=== PATIENT | female | born 1990 | race Caucasian/White ===

== ENCOUNTER 2017-03-14 15:24 | Emergency (ER) | payer OTHER ==
[~2017-03-14] VITALS: Ht 167.6 cm; Wt 82.1 kg
[2017-03-14 15:25] VITALS: TEMP 36.5; Ht 167.6 cm; Wt 82.1 kg
[2017-03-14] MEDS ORDERED: LEVOIUD INT UTER (16:09)
[2017-03-14] MEDS ORDERED: CETI10TA10 PO (16:09)
[2017-03-14] MEDS ORDERED: CALC500C3 PO (16:09)
[2017-03-14] MEDS ORDERED: GELATIN SPONGE 12-7MM EXT ONE (16:15)
[2017-03-14] MEDS ORDERED: ACETAMINOPHEN 500 MG TAB PO STA (16:36)
[2017-03-14] MEDS ORDERED: XYLOCAINE 1%/SOD BICARB 20 ML VIAL INFIL ONE (17:00)
[2017-03-14] MEDS ORDERED: BUPIVACAINE 0.5 % 5 MG/1 ML MPF 30ML VIAL INFIL ONE (17:00)
[2017-03-14 18:30] VITALS: BP 133/79; PULSE 74; O2SAT 100
[2017-03-14] MEDS ORDERED: CEPH500C PO (18:36)
--- NOTE | 2017-03-14 18:40 | EMERGENCY ROOM VISIT NOTE ---
ED Visit Note First contact with patient: 15:32 CHIEF COMPLAINT: Finger avulsion HISTORY OF PRESENT ILLNESS: This 26-year-old female patient presents to the emergency department approximately 30 minutes after cutting the lateral right thumb on a mandolin slicer. The patient said "it cut a chunk of skin off that I brought in a separate paper towel". The patient immediately applied pressure to the area and bandaged it with paper towels and tape, however the bleeding has not stopped. The patient states her thumb feels cold and tingling, but she believes the bones are intact, and states she is able to move the thumb. The patient states she was told she may have anti-thrombin 3 deficiency, however states she is still having testing completed. The bleeding has not stopped. Denies weakness or numbness of the finger. The patient has full range of motion of the fingers. The patient rates the pain as throbbing and 6/10. The patient denies any other injuries. The patient's tetanus shot is up to date. REVIEW OF SYSTEMS: A 6 system review of systems was completed with positives and pertinent negatives listed in the HPI. ALLERGIES: None MEDICATIONS: Mirena PMH: None SOCIAL HISTORY: The patient lives locally with family. She denies drug, alcohol , tobacco use. PHYSICAL EXAM: Vital Signs: Reviewed Nurse's notes, vital signs stable. GENERAL : This is a 26-year-old female, in no acute distress, well developed, well nourished. SKIN: There is a 1.5 cm long avulsion of the skin of the lateral thumb on the right. The edges gape apart. There is no foreign material in the wound and it looks clean. There is a significant amount of active bleeding. No deep structures such as tendons, bones, or significant blood vessels are seen in the base of the wound. Extension and flexion of the finger is full and strong. Full range of motion of the wrist and other fingers. Capillary refill less than 2 seconds. Normal sensation to light and sharp touch. EMERGENCY DEPARTMENT COURSE: I examined the patient. A pressure bandage was applied and allowed to sit for approximately 20 minutes. The bleeding continued , so a finger tourniquet was applied with a Gelfoam dressing. This allowed to sit for 30 minutes. Upon removal of the tourniquet, bleeding resumed. Verbal consent was obtained to perform the procedure. Using sterile technique the wound was cleansed with Betadine. 10 ml of 1% buffered lidocaine and 0.5% bupivacaine was used to perform a digital block to anesthetize the patient. The area was sterilely draped. Once the patient was anesthetized, the wound was copiously irrigated under pressure with sterile saline. The wound was explored and there were no deep structures injured, however, there are several small blood vessels actively bleeding. The vessels were ligated using approximately 10 simple interrupted 6-0 fast-absorbing sutures. The patient tolerated the procedure well. Hemostasis was achieved. The area was cleaned with sterile saline and dressed with Gelfoam and bandage. The patient was discharged home in good condition. DIFFERENTIAL DIAGNOSIS: avulsion, laceration, fracture, contusion, open fracture , and others. DIAGNOSIS: Finger avulsion DISCHARGE INSTRUCTIONS & TREATMENT: We did place dissolvable sutures and your hand. No further action is needed. Proper wound care is essential for adequate wound healing and infection prevention. You can shower and clean the wound with soap and water. Do not scour over the wound, pat dry with a towel. Do not submerse the wound (i.e. bathe or dish wash) until the wound has fully healed. You can use an antibiotic ointment with a dressing over the wound for the next 3-4 days after gelfoam dressing is removed. After this time you may leave the wound dry and open to the air. You were prescribed Keflex to be taken 4 times daily. This is an antibiotic. All antibiotics have the potential to cause diarrhea. Stop this medication and contact a medical provider if you were to develop any significant adverse side effects including: wheezing, shortness of breath, passing out, vomiting, or a diffuse rash. Always take antibiotics as directed and COMPLETE the ENTIRE course regardless of the improvement of your symptoms. Please read Gelfoam handout. Please follow up this week with your PCP for recheck of the wound. Please return to the emergency department for uncontrollable bleeding, worsening pain, redness, pus, fever, chills, body aches, or other concerning drainage. Current/Historical Medications Scheduled Cephalexin Monohydrate (Keflex), 500 MG PO QID Cetirizine Hcl (Zyrtec), 10 MG PO DAILY Levonorgestrel (Iud) (Mirena), 20 MCG INT UTER UD Scheduled PRN Calcium Carbonate (Tums), 500 MG PO UD PRN for Indigestion Oxycodone Ir (Roxicodone Ir), 1 TAB PO Q4-6H PRN for Pain Allergies Coded Allergies: No Known Allergies (Unverified , 03/14/17) Vital Signs Date Time Temp Pulse Resp B/P (MAP) Pulse Ox O2 Delivery O2 Flow Rate FiO2 03/14/17 18:30 74 17 133/79 100 Room Air 03/14/17 16:45 81 16 132/81 99 Room Air 03/14/17 15:25 36.5 95 16 145/91 100 Room Air Medications Administered Medications (Trade) Dose Ordered Sig/Sarah Route Start Time Stop Time Status Last Admin Dose Admin Acetaminophen (Tylenol Tab) 1,000 mg NOW STAT PO 03/14/17 16:36 03/14/17 16:37 DC 03/14/17 16:43 1,000 MG Departure Information Impression Primary Impression: Avulsion of skin of right thumb without complication Dispostion Home / Self-Care Condition GOOD Prescriptions Oxycodone Ir (Roxicodone Ir) 5 Mg Tab 1 TAB PO Q4-6H Y for Pain, #15 TAB For Initial Treatment Prov: Mindy Cr PA-C 03/14/17 Cephalexin Monohydrate (Keflex) 500 Mg Cap 500 MG PO QID for 7 Days, #28 CAP Prov: Mindy Cr PA-C 03/14/17 Referrals No Doctor, Assigned (PCP) Patient Instructions ED Gelfoam Dressing, [facility] Additional Instructions We did place dissolvable sutures and your hand. No further action is needed. Proper wound care is essential for adequate wound healing and infection prevention. You can shower and clean the wound with soap and water. Do not scour over the wound, pat dry with a towel. Do not submerse the wound (i.e. bathe or dish wash) until the wound has fully healed. You can use an antibiotic ointment with a dressing over the wound for the next 3-4 days after gelfoam dressing is removed. After this time you may leave the wound dry and open to the air. You were prescribed Keflex to be taken 4 times daily. This is an antibiotic. All antibiotics have the potential to cause diarrhea. Stop this medication and contact a medical provider if you were to develop any significant adverse side effects including: wheezing, shortness of breath, passing out, vomiting, or a diffuse rash. Always take antibiotics as directed and COMPLETE the ENTIRE course regardless of the improvement of your symptoms. Please read Gelfoam handout. Please follow up this week with your PCP for recheck of the wound. Please return to the emergency department for uncontrollable bleeding, worsening pain, redness, pus, fever, chills, body aches, or other concerning drainage. Problem Qualifiers Primary Impression: Avulsion of skin of right thumb without complication Encounter type: initial encounter Qualified Codes: S61.001A - Unspecified open wound of right thumb without damage to nail, initial encounter
[2017-03-14] MEDS ORDERED: OXYC1TAB3 PO (19:34)
== END 2017-03-14 18:50 | disposition home or self-care (01) ==
LOC: C.EDB 15:26 → C.EDD 18:50
DX: S61.011A Laceration without foreign body of right thumb without damage to nail, initial encounter (principal); W45.8XXA Other foreign body or object entering through skin, initial encounter